=== PATIENT | female | born 1990 | race Caucasian/White ===

== ENCOUNTER 2024-04-15 11:06 | Emergency (ER) | payer BC ==
[2024-04-15] MEDS ORDERED: LIDOCAINE 1% MPF 5 ML VIAL ONE (11:24)
--- NOTE | 2024-04-15 11:53 | EDPHYS ---
Physician Documentation [facility] Name: Nathalie Ruiz Age: 33 yrs Sex: Female : 1990 Arrival Date: 04/15/2024 Time: 11:06 Bed 14 Private MD: ED Physician Parmjit Aly HPI: 04/15 11:24 This 33 yrs old Female presents to ER via Ambulatory with complaints of abscess. sb4 11:24 The patient presents with an abscess of the left axilla. Description: The affected area sb4 is small, localized, swollen, tense, warm. Onset: The symptoms/episode began/occurred 3 day(s) ago. Possible cause(s): razor. Associated signs and symptoms: The patient has no apparent associated signs or symptoms. Modifying factors: the symptoms are alleviated by nothing, the symptoms are aggravated by squeezing the lesion and expressing the contents, touching. The patient has not experienced similar symptoms in the past. The patient has not recently seen a physician. Historical: - Allergies: 11:19 No Known Allergies; hb - Home Meds: 11:19 None [Active]; hb - PMHx: 11:19 None; hb - PSHx: 11:19 None; hb - Immunization history:: Adult Immunizations up to date. - Infectious Disease History:: Denies. - Social history:: Smoking status: Patient denies any tobacco usage or history of. ROS: 11:24 Constitutional: Negative for fever, chills, and weight loss, sb4 11:24 Skin: Positive for abscess, of the left axilla, 11:24 All other systems are negative, Exam: 11:24 Constitutional: This is a well developed, well nourished patient who is awake, alert, sb4 and in no acute distress. Head/Face: Normocephalic, atraumatic. Eyes: Extra-ocular motions intact. Periorbital areas with no swelling, redness, or edema. ENT: Mucous membranes moist. 11:24 Skin: abscess, that is small, of the left axilla, with fluctuance, Vital Signs: 11:18 BP 146 / 101; Pulse 86; Resp 16; Temp 98.1(O); Pulse Ox 100% on R/A; Weight 65.77 kg; hb Height 5 ft. 3 in. ; Pain 8/10; 11:52 BP 142 / 98; Pulse 90; Resp 18; Pulse Ox 100% ; ko1 11:18 Body Mass Index 25.69 (65.77 kg, 160.02 cm) hb 11:18 Pain Scale: Adult hb Procedures: 11:51 I \T\ D: Incision and drainage was performed for an abscess of the left axilla. Prepped sb4 with Betadine, Anesthetized with 2 ml's 1% Lidocaine. Incised with #11 blade. Drained moderate amount purulent fluid. Dressing: non-Adherent dressing, the patient tolerated the procedure well. MDM: 11:14 Patient medically screened. sb4 11:51 Data reviewed: vital signs, nurses notes, and as a result, I will discharge patient. sb4 Counseling: I had a detailed discussion with the patient and/or guardian regarding the historical points, exam findings, and any diagnostic results supporting the discharge/admit diagnosis, the need for outpatient follow up, for definitive care, to return to the emergency department if symptoms worsen or persist or if there are any questions or concerns that arise at home. Administered Medications: 11:49 Drug: Lidocaine Infiltration (1 %) 5 ml 5 ml Infiltration once; to bedside {Note: given ko1 by Dustin Beal.} Volume: 5 ml; Route: Infiltration; Disposition: 12:09 Co-signature as Attending Physician, Parmjit Aly MD I reviewed the patient's care rn provided by the Advanced Practice Provider and agree with the diagnosis and treatment plan. Disposition Summary: 04/15/24 11:52 Discharge Ordered Notes: Location: Home sb4 Problem: new sb4 Symptoms: have improved sb4 Condition: Stable sb4 Diagnosis - Cutaneous abscess of left axilla sb4 Followup: sb4 - With: Emergency Department - When: As needed - Reason: Fever > 102 F, Worsening of condition Discharge Instructions: - Discharge Summary Sheet sb4 - Skin Abscess, [id number] sb4 - Incision and Drainage, Care After sb4 Forms: - Antibiotic Education sb4 - Patient Portal Instructions sb4 - Leadership Thank You Letter sb4 Prescriptions: - Bactrim DS 800-160 mg Oral Tablet - take 1 tablet ORAL route every 12 hours for 10 days; 20 tablet; Refills: 0, sb4 Product Selection Permitted Signatures: Parmjit Aly MD MD rn Baxter, Heather, RN RN hb Oliver, Kathy, RN RN ko1 Rachael Beal, PA-C PA-C sb4
--- NOTE | 2024-04-15 11:53 | ER ---
Nurse's Notes [facility] Name: Nathalie Ruiz Age: 33 yrs Sex: Female : 1990 Arrival Date: 04/15/2024 Time: 11:06 Bed 14 Private MD: Diagnosis: Cutaneous abscess of left axilla Presentation: 04/15 11:18 Chief complaint: Abscess under left arm x 3-4 days. Coronavirus screen: At this time, hb the client does not indicate any symptoms associated with coronavirus-19. Ebola Screen: No symptoms or risks identified at this time. Initial Sepsis Screen: Does the patient meet any 2 criteria? No. Patient's initial sepsis screen is negative. Does the patient have a suspected source of infection? No. Patient's initial sepsis screen is negative. Risk Assessment: Do you want to hurt yourself or someone else? Patient reports no desire to harm self or others. Onset of symptoms was April 12, 2024. 11:18 Method Of Arrival: Ambulatory hb 11:18 Acuity: AUDI 4 hb Triage Assessment: 12:01 General: Behavior is calm, cooperative, appropriate for age. ko1 Historical: - Allergies: 11:19 No Known Allergies; hb - Home Meds: 11:19 None [Active]; hb - PMHx: 11:19 None; hb - PSHx: 11:19 None; hb - Immunization history:: Adult Immunizations up to date. - Infectious Disease History:: Denies. - Social history:: Smoking status: Patient denies any tobacco usage or history of. Screenin:27 [facility] ED Fall Risk Assessment (Adult) History of falling in the last 3 months, ko1 including since admission No falls in past 3 months (0 pts) Confusion or Disorientation No (0 pts) Intoxicated or Sedated No (0 pts) Impaired Gait No (0 pts) Mobility Assist Device Used No (0 pt) Altered Elimination No (0 pt) Score/Fall Risk Level 0 - 2 = Low Risk Oriented to surroundings, Maintained a safe environment, Educated pt \T\ family on fall prevention, incl call for assistance when getting out of bed, Assessed \T\ reinforced patient's understanding of fall precautions, Provided non-skid footwear, Hourly rounding (assess needs \T\ fall precautionary measures) done. Abuse screen: Denies threats or abuse. Denies injuries from another. Nutritional screening: No deficits noted. Tuberculosis screening: No symptoms or risk factors identified. Assessment: 11:27 General: Appears in no apparent distress. Pain: Complains of pain in left axilla. ko1 Neuro: No deficits noted. Cardiovascular: No deficits noted. Respiratory: No deficits noted. GI: No deficits noted. : No deficits noted. EENT: No deficits noted. Derm: Abscess located on left axilla. Musculoskeletal: No deficits noted. Vital Signs: 11:18 BP 146 / 101; Pulse 86; Resp 16; Temp 98.1(O); Pulse Ox 100% on R/A; Weight 65.77 kg; hb Height 5 ft. 3 in. ; Pain 8/10; 11:52 BP 142 / 98; Pulse 90; Resp 18; Pulse Ox 100% ; ko1 11:18 Body Mass Index 25.69 (65.77 kg, 160.02 cm) hb 11:18 Pain Scale: Adult hb ED Course: 11:11 Patient arrived in ED. mg5 11:14 Rachael Beal PA-C is PHCP. sb4 11:14 Parmjit Aly MD is Attending Physician. sb4 11:17 Rhoda Dowell, CHIQUITA is Primary Nurse. ko1 11:19 Triage completed. hb 11:19 Arm band placed on. hb 11:27 Patient has correct armband on for positive identification. Bed in low position. Call ko1 light in reach. Side rails up X2. Provided Education on: procedure. Pulse ox on. NIBP on. Door closed. Noise minimized. Lights dimmed. Warm blanket given. Pillow given. 11:27 Patient did not have IV access during this emergency room visit. ko1 11:55 Assist provider with I \T\ D: of an abscess on left axilla Set up I\T\D tray. Performed by ko 1 Rachael Beal PA-C Dressing with Neosporin and 4X4s, tape Patient tolerated well. Administered Medications: 11:49 Drug: Lidocaine Infiltration (1 %) 5 ml 5 ml Infiltration once; to bedside {Note: given ko1 by Dustin Beal.} Volume: 5 ml; Route: Infiltration; Medication: 11:27 VIS not applicable for this client. ko1 Outcome: 11:52 Discharge ordered by . sb4 12:01 Discharged to home ambulatory, ko1 12:01 Condition: stable 12:01 Discharge instructions given to patient, Instructed on discharge instructions, follow up and referral plans. medication usage, wound care, Demonstrated understanding of instructions, follow-up care, medications, wound care, Prescriptions given X 1, 12:01 Patient left the ED. ko1 Signatures: Jennifer Miller RN CHIQUITA Rhoda Dowell RN RN ko1 Rachael Beal, PA-C PAEileenC sb4 Patsy Mon 5
[2024-04-15 12:07] VITALS: TEMP 98.1; O2SAT 100
[2024-04-15 12:08] VITALS: BP 142/98
== END 2024-04-15 12:01 | disposition home or self-care (01) ==
LOC: ER 11:06
PROC: 0H9CXZZ Drainage of Left Upper Arm Skin, External Approach (ICD-10-PCS; principal; 2024-04-15)
DX: L02.412 Cutaneous abscess of left axilla (principal)
CPT/HCPCS: 99284; 10060; J2001

== ENCOUNTER 2024-05-13 11:43 | Emergency (ER) | payer BC, MEDICARE ==
[2024-05-13] MEDS ORDERED: LORazepam 2 MG/ML VIAL ONE (12:53)
[2024-05-13] MEDS ORDERED: NA CHLORIDE 0.9% 1,000 ML ONE (12:53)
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
--- NOTE | 2024-05-13 12:56 | RAD REPORT ---
Procedure: Chest Single View HISTORY: Chest pain COMPARISON: none FINDINGS: The lungs appear clear of acute infiltrate. No significant pleural effusion noted. The heart is normal size. IMPRESSION: No acute abnormality is displayed.
[2024-05-13 13:23] LABS: Absolute Lymphocytes (CBC) 1.1 K/uL (0.7-4.9); Absolute Monocytes 0.7 K/uL (0.1-1.3); Absolute Neutrophil 10.2 K/uL (1.8-8.0); Basophils % 0.2 % (0-1.3); Eosinophils % 0.1 % (0-4.4); Hematocrit 36.7 % (36.0-45.0); Lymphocytes % 8.8 % (15.3-44.8); MCH 30.8 pg (27.0-35.0); MCHC 32.8 g/dL (32.0-36.0); MCV 93.7 fL (80-100); Monocytes % 5.8 % (3.3-12.3); Neutrophils % 85.1 % (41.7-73.7); Platelets 316 thou/uL (152-406); RBC Red Blood Cell Count 3.92 M/uL (3.86-4.86); Red Cell Distribution Width 13.5 % (12.1-15.2)
[2024-05-13 13:43] LABS: Albumin 3.3 g/dL (3.4-5.0); Anion Gap 7.8 mEq/L (5.0-15.0); Bilirubin Total 0.6 mg/dL (0.2-1.0); Globulin 3.2 g/dL (2.3-3.5); Potassium 3.8 mEq/L (3.5-5.1); Protein, Total 6.5 g/dL (6.4-8.2)
[2024-05-13 13:51] LABS: Blood Morphology Comment NOT SEEN (NOT SEEN); Platelet Estimate ADEQ; Toxic Granulation 1+; White Blood Cell Scan OK (OK)
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
[2024-05-13 18:47] VITALS: O2SAT 100
[2024-05-13 18:49] VITALS: TEMP 97.7
[2024-05-13 18:54] VITALS: BP 107/72
== END 2024-05-13 16:45 | disposition home or self-care (01) ==
LOC: ER 11:43
DX: G44.319 Acute post-traumatic headache, not intractable (principal); Y04.8XXA Assault by other bodily force, initial encounter; Z21 Asymptomatic human immunodeficiency virus [HIV] infection status
CPT/HCPCS: 36415; 70450; 71045; 80053; 82550; 84703; 85025; 93005; J7030

== ENCOUNTER 2024-08-05 18:18 | Emergency (ER) | payer MEDICARE ==
[2024-08-05] MEDS ORDERED: LIDOCAINE 2% W/EPI 1:200,000 MPF 20 ML VIAL IM ONE (19:11)
[2024-08-05] MEDS ORDERED: IBUPROFEN 200 MG TAB PO ONE (19:11)
[2024-08-05] MEDS ORDERED: ACETAMINOPHEN 325 MG TABLET ONE (19:12)
[2024-08-05] MEDS ORDERED: IBUPROFEN 400 MG TAB ONE (19:12)
--- NOTE | 2024-08-05 20:06 | ER ---
Nurse's Notes [facility] Name: Nathalie Ruiz Age: 33 yrs Sex: Female : 1990 Arrival Date: 08/05/2024 Time: 18:18 Bed 12 Private MD: Diagnosis: Cutaneous abscess of abdominal wall Presentation: 08/05 18:51 Chief complaint: Patient states: abscess to abdomen onset 3 days ago. Coronavirus cm10 screen: Client denies travel out of the [place] in the last 14 days. Ebola Screen: Patient denies travel to an Ebola-affected area in the 21 days before illness onset. No symptoms or risks identified at this time. Initial Sepsis Screen: Does the patient meet any 2 criteria? HR > 90 bpm. Does the patient have a suspected source of infection? No. Patient's initial sepsis screen is negative. Risk Assessment: Do you want to hurt yourself or someone else? Patient reports no desire to harm self or others. Onset of symptoms was August 05, 2024. 18:51 Method Of Arrival: Ambulatory cm10 18:51 Acuity: AUDI 4 cm10 Historical: - Allergies: 18:51 No Known Allergies; cm10 - Home Meds: 18:52 Genvoya oral daily [Active]; cm10 - PMHx: 18:51 HERPES; HIV positive; cm10 - Immunization history:: Adult Immunizations up to date. - Infectious Disease History:: Denies. - Social history:: Smoking status: Reported history of juuling and/or vaping. Screenin:00 [facility] ED Fall Risk Assessment (Adult) History of falling in the last 3 months, br2 including since admission No falls in past 3 months (0 pts) Confusion or Disorientation No (0 pts) Intoxicated or Sedated No (0 pts) Impaired Gait No (0 pts) Mobility Assist Device Used No (0 pt) Altered Elimination No (0 pt) Score/Fall Risk Level 0 - 2 = Low Risk Oriented to surroundings. Abuse screen: Denies threats or abuse. Denies injuries from another. Nutritional screening: No deficits noted. Nutritional screening: No deficits noted. Tuberculosis screening: No symptoms or risk factors identified. Assessment: 19:00 Reassessment: Patient and/or family updated on plan of care and expected duration. Pain br2 level reassessed. Patient is alert, oriented x 3, equal unlabored respirations, skin warm/dry/pink. General: Appears in no apparent distress. comfortable, Behavior is calm, cooperative. Pain: Complains of pain in right lower quadrant Pain does not radiate. Pain currently is 10 out of 10 on a pain scale. Derm: Skin ABSCESS Skin is red, Abscess located on right lower quadrant. Vital Signs: 18:51 BP 129 / 88; Pulse 124; Resp 15; Temp 97.2(TE); Pulse Ox 100% on R/A; Weight 58.97 kg; cm10 Height 5 ft. 2 in. ; Pain 8/10; 20:21 BP 117 / 84; Pulse 110; Resp 20 S; Pulse Ox 100% on R/A; br2 18:51 Body Mass Index 23.78 (58.97 kg, 157.48 cm) cm10 18:51 Pain Scale: Adult cm10 ED Course: 18:24 Patient arrived in ED. ra3 18:32 Curtis Gresham PA is PHCP. cp 18:32 Curtis Maher MD is Attending Physician. cp 18:51 Triage completed. cm10 18:52 Arm band placed on right wrist. Patient placed in an exam room, on a stretcher. cm10 18:53 Linda Dillard, CHIQUITA is Primary Nurse. br2 19:00 Patient has correct armband on for positive identification. Bed in low position. Call br2 light in reach. Side rails up X 1. Provided Education on: PLAN OF CARE. 19:01 Enrique Escamilla MD is Attending Physician. cp 20:29 No provider procedures requiring assistance completed. Patient did not have IV access br2 during this emergency room visit. Administered Medications: 19:14 Drug: Lidocaine-Epinephrine Infiltration -2 % (1:100,000) 10 ml Infiltration once; to br2 bedside Route: Infiltration; 19:18 Drug: Ibuprofen PO 600 mg PO once Route: PO; br2 20:00 Follow up: Response: No adverse reaction br2 19:18 Drug: Acetaminophen PO 650 mg PO once Route: PO; br2 20:00 Follow up: Response: No adverse reaction br2 20:22 Drug: Trimethoprim-Sulfamethoxazole PO (160 mg-800 mg (DS) 2 tablet PO once Route: PO; br2 20:30 Follow up: Response: Medication administered at discharge. br2 Medication: 20:29 VIS not applicable for this client. br2 Outcome: 20:05 Discharge ordered by . flor 20:29 Discharged to home ambulatory, br2 20:29 Condition: good 20:29 Discharge instructions given to patient, Instructed on discharge instructions, Demonstrated understanding of instructions, follow-up care, medications, Prescriptions given X 2, 20:30 Patient left the ED. br2 Signatures: Curtis Gresham PA PA cp Martinez, Clarissa, RN RN cm10 Lashon Archibald ra3 Linda Dillard RN RN br2
--- NOTE | 2024-08-05 20:06 | EDPHYS ---
Physician Documentation [facility] Name: Nathalie Ruiz Age: 33 yrs Sex: Female : 1990 Arrival Date: 08/05/2024 Time: 18:18 Bed 12 Private MD: ED Physician Enrique Escamilla HPI: 08/05 19:10 This 33 yrs old Female presents to ER via Ambulatory with complaints of Insect Bite. cp 19:10 The patient presents with an abscess of the right lower quadrant of abdomen. cp Description: erythematous, swollen. Onset: The symptoms/episode began/occurred 3 day(s) ago. Possible cause(s): unknown. 19:10 Associated signs and symptoms: Pertinent positives: erythema, swelling, Pertinent cp negatives: discharge, drainage, fever. Historical: - Allergies: 18:51 No Known Allergies; cm10 - Home Meds: 18:52 Genvoya oral daily [Active]; cm10 - PMHx: 18:51 HERPES; HIV positive; cm10 - Immunization history:: Adult Immunizations up to date. - Infectious Disease History:: Denies. - Social history:: Smoking status: Reported history of juuling and/or vaping. ROS: 19:15 Constitutional: Negative for body aches, chills, fever, poor PO intake, cp 19:15 Eyes: Negative for injury, pain, redness, and discharge, cp 19:15 Respiratory: Negative for cough, shortness of breath, 19:15 Abdomen/GI: Positive for of the right lower quadrant, abscess, Negative for vomiting, diarrhea, constipation, 19:15 Neuro: Negative for altered mental status, 19:15 All other systems are negative, Exam: 19:20 Constitutional: The patient appears in no acute distress, alert, awake, non-toxic, well cp developed, well nourished, 19:20 Head/Face: Normocephalic, atraumatic. cp 19:20 Cardiovascular: Rate: tachycardic, 19:20 Respiratory: the patient does not display signs of respiratory distress, Respirations: normal, no use of accessory muscles, no retractions, labored breathing, is not present, Breath sounds: are clear throughout, 19:20 Abdomen/GI: Inspection: small abscess noted right lower abdomen in area of belt line with mild surrounding erythema and swelling, Bowel sounds: active, all quadrants, Palpation: soft, in all quadrants, mild abdominal tenderness, in the right lower quadrant, Vital Signs: 18:51 BP 129 / 88; Pulse 124; Resp 15; Temp 97.2(TE); Pulse Ox 100% on R/A; Weight 58.97 kg; cm10 Height 5 ft. 2 in. ; Pain 8/10; 20:21 BP 117 / 84; Pulse 110; Resp 20 S; Pulse Ox 100% on R/A; br2 18:51 Body Mass Index 23.78 (58.97 kg, 157.48 cm) cm10 18:51 Pain Scale: Adult cm10 Procedures: 20:05 I \T\ D: Incision and drainage was performed for an abscess of the right lower abdomen cp Prepped with Betadine, Anesthetized with ml's 2% Lidocaine with epinephrine. 4 ml's 2% Lidocaine with epinephrine. Incised with #11 blade. Drained small amount purulent fluid. Packed with iodoform gauze, Dressing: sterile 4x4 gauze, the patient tolerated the procedure well. MDM: 18:52 Medical Screening Exam initiated jean marie 19:15 Differential diagnosis: abscess, cellulitis, insect bite, sepsis. 20:05 Data reviewed: vital signs, nurses notes, and as a result, I will discharge patient. 20:05 I considered the following discharge prescriptions or medication management in the emergency department Medications were administered in the Emergency Department. See MAR. 20:05 Care significantly affected by the following chronic conditions: HIV. Counseling: I had a detailed discussion with the patient and/or guardian regarding the historical points, exam findings, and any diagnostic results supporting the discharge/admit diagnosis, to return to the emergency department if symptoms worsen or persist or if there are any questions or concerns that arise at home. Response to treatment: the patient's symptoms have mildly improved after treatment, and as a result, I will discharge patient. 08/05 19:04 Order name: I\T\D Setup; Complete Time: 19:14 cp 08/05 20:04 Order name: Wound dressing; Complete Time: 20:22 08/05 20:06 Order name: Vital Signs; Complete Time: 20:22 Administered Medications: 19:14 Drug: Lidocaine-Epinephrine Infiltration -2 % (1:100,000) 10 ml Infiltration once; to br2 bedside Route: Infiltration; 19:18 Drug: Ibuprofen PO 600 mg PO once Route: PO; br2 20:00 Follow up: Response: No adverse reaction br2 19:18 Drug: Acetaminophen PO 650 mg PO once Route: PO; br2 20:00 Follow up: Response: No adverse reaction br2 20:22 Drug: Trimethoprim-Sulfamethoxazole PO (160 mg-800 mg (DS) 2 tablet PO once Route: PO; br2 20:30 Follow up: Response: Medication administered at discharge. br2 Disposition: 08/06 01:51 Co-signature as Attending Physician, Enrique Escamilla MD I reviewed the patient's care rt provided by the Advanced Practice Provider and agree with the diagnosis and treatment plan. Disposition Summary: 08/05/24 20:05 Discharge Ordered Notes: Location: Home cp Problem: new cp Symptoms: have improved cp Condition: Stable cp Diagnosis - Cutaneous abscess of abdominal wall cp Followup: cp - With: Emergency Department - When: 2 - 3 days - Reason: Worsening of condition Discharge Instructions: - Discharge Summary Sheet cp - Skin Abscess cp - Incision and Drainage cp Forms: - Medication Reconciliation Form cp - Antibiotic Education cp - Prescription Opioid Use cp - Patient Portal Instructions cp - Leadership Thank You Letter cp Prescriptions: - Ibuprofen 800 mg Oral Tablet - take 1 tablet ORAL route every 8 hours As needed take with food; 30 tablet; cp Refills: 0, Product Selection Permitted - Bactrim DS 800-160 mg Oral Tablet - take 1 tablet ORAL route every 12 hours for 10 days; 20 tablet; Refills: 0, cp Product Selection Permitted Signatures: Curtis Maher MD MD cha Page, Corey, PA PA cp Enrique Escamilla MD MD rt Esther Terrazas RN RN cm10 Linda Dillard RN RN br2
[2024-08-05] MEDS ORDERED: SMZ./TMP. 800/160 MG TABLET ONE (20:15)
[2024-08-05 20:41] VITALS: TEMP 97.2; O2SAT 100
[2024-08-05 20:43] VITALS: BP 117/84
== END 2024-08-05 20:30 | disposition home or self-care (01) ==
LOC: ER 18:18
PROC: 0H97XZZ Drainage of Abdomen Skin, External Approach (ICD-10-PCS; principal; 2024-08-05)
DX: L02.211 Cutaneous abscess of abdominal wall (principal)
CPT/HCPCS: 99283

== ENCOUNTER 2024-08-30 08:22 | Day surgery (SDC) | payer MEDICARE ==
[2024-08-30] MEDS ORDERED: LIDOCAINE 2% MPF 5 ML VIAL ONE (08:49)
[2024-08-30] MEDS ORDERED: ONDANSETRON 4 MG/2 ML VIAL ONE (08:49)
[2024-08-30] MEDS ORDERED: MIDAZOLAM HCL 2 MG/2 ML INJ ONE (08:50)
[2024-08-30] MEDS ORDERED: propofoL 200 MG/20 ML VIAL IV ONE (08:50)
[2024-08-30] MEDS ORDERED: ROCURONIUM 50 MG/5 ML VIAL IV ONE (08:50)
[2024-08-30] MEDS ORDERED: FENTANYL CITR 100 MCG/2 ML ONE ×2 (08:50→10:00)
[2024-08-30] MEDS ORDERED: BUPIVACAINE 0.25% PF 30 ML VIAL ONE (08:56)
[2024-08-30 09:04] LABS: Absolute Eosinophils 0.1 K/uL (0-0.5); Absolute Lymphocytes (CBC) 1.6 K/uL (0.7-4.9); Absolute Monocytes 0.5 K/uL (0.1-1.3); Absolute Neutrophil 3.5 K/uL (1.8-8.0); Basophils % 0.8 % (0-1.3); Eosinophils % 1.4 % (0-4.4); Hematocrit 38.4 % (36.0-45.0); Hemoglobin 12.9 g/dL (12.0-15.0); Lymphocytes % 28.3 % (15.3-44.8); MCH 30.9 pg (27.0-35.0); MCHC 33.6 g/dL (32.0-36.0); Monocytes % 8.7 % (3.3-12.3); Neutrophils % 60.8 % (41.7-73.7); Nucleated Red Blood Cells % 0.1 % (0-0); Platelets 324 thou/uL (152-406); RBC Red Blood Cell Count 4.17 M/uL (3.86-4.86); Red Cell Distribution Width 13.9 % (12.1-15.2)
[2024-08-30] MEDS ORDERED: LIDOCAINE HCL/EPINEPHRINE 20 ML MDV ONE (09:09)
[2024-08-30 09:10] LABS: Sqamous Epithelial <5 /HPF (None Seen); Urine Bacteria <20 /HPF (<20); Urine Bilirubin NEGATIVE (Negative); Urine Blood Trace (Negative); Urine Clarity Extremely Turbid (Clear); Urine Color Light-Yellow (Yellow); Urine Culture Reflex Order REFLEXED; Urine Glucose NEGATIVE (Negative); Urine Ketones NEGATIVE (Negative); Urine Microscopic Reflex YN ORDER UMIC; Urine Nitrite NEGATIVE (Negative); Urine Protein NEGATIVE (Negative); Urine Urobilinogen Normal (Normal); Urine WBC >50 /HPF (<5); Urine WBC Clump Rare /HPF (None Seen); Urine Yeast with Hyphae Trace /HPF (None Seen)
[2024-08-30] MEDS ORDERED: SCOPOLAMINE HYDROBROMIDE PATCH TD ONE (09:10)
[2024-08-30] MEDS: Ringers Lactate 1,000 ML IV ONE (09:20)
[2024-08-30] MEDS ORDERED: dexAMETHasone 10 MG/ML VIAL ONE (09:39)
[2024-08-30] MEDS: CEFAZOLIN SODIUM 2 GM/VIAL ONE (09:45)
[2024-08-30 09:58] LABS: Urine Specific Gravity/Preg >1.030 (1.005-1.030)
[2024-08-30] MEDS ORDERED: IBUPROFEN 200 MG TAB PO PRN (11:02)
[2024-08-30] MEDS ORDERED: ACETAMINOPHEN 500 MG TAB PO PRN (11:03)
[2024-08-30] MEDS ORDERED: KETOROLAC 30 MG/ML INJ ONE (11:03)
--- NOTE | 2024-08-30 11:08 | P.BOP ---
Preoperative diagnosis: CIN2,3, +ECC CIN2, menorrhagia, dysmenorrhea, HPV 16, HIV+Smoker Postoperative diagnosis: same Primary procedure: Cervical colposcopy, COld Knife conization, ECC, hysteroscopy d/c Carton Forming Machine Tender: Alejandra Kramer Estimated blood loss: 10 Specimen: EMC, ECC, cone Findings: AWE at 11, mild, hystsc with normal endometrium, satisfactory cone Anesthesia: General Complications: None Transferred to: Recovery Room Condition: Good
[2024-08-30 13:02] VITALS: BP 122/76; TEMP 97.4; O2SAT 97
--- NOTE | 2024-08-30 22:35 | OP ---
Date of Procedure: 08/30/2024 Surgeon: Sissy Diaz MD Assembly Line Driver: Alejandra Hodges. 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 Procedures Performed: 1. Cervical colposcopy, cold knife conization and endocervical curettage. 2. Hysteroscopy and dilation and curettage. Estimated Blood Loss: 10. Anesthesia: General with LMA. Complications: No complications. Drains: No drains. Specimens: Endometrial curettage, endocervical curettage, and cervical colon. Findings: On colposcopy, aceto-white epithelium with mild dysplastic changes were noted at 11 o'cloc k. Rest of the cervix was unremarkable under the colposcope. On hysteroscopy, endometrium was mostl y unremarkable. No new intracavitary lesions were noted and the cavity was entirely visualized and t he endometrial curettage was performed. There was slight amount of thickened tissue on the internal aspect, lower aspect of the uterine canal around 7 o'clock position and attention was paid to this wh ile obtaining the curettings. The colon was satisfactory in size and in margins. Condition: The patient's condition is stable. Indications: The patient is a 34-year-old female who was referred to us by Luba Prakash who is a nurse practitioner in [facility] for an abnormal Pap smear. She had a low-grade FRANCISCO Pap with HPV 16 posi tive. On consultation and colposcopy in the office, there were dysplastic changes both at 7 and 11 o 'clock positions, which were both biopsied and ECC was done. The results at 7 o'clock were consisten t with CYNTHIA 3 and CYNTHIA 2 at 11 o'clock and the endocervical canal. Given this pathology and given the patient's longstanding history of HPV, which she believes has been diagnosed when she was diagnosed w ith HIV as well in 2017, she was living in [place]. She was referred for colposcopy or a biopsy, but she has never followed through other than getting her Pap smear screening along with her anti-retrov iral medication with which she is compliant. She is on 2 different drugs and her viral load is undet ectable. She has moved to [place] in less than a year ago and lives with possibly closer to her mother , maybe lives with a partner. The patient also has history of heavy periods. 2 out of those days ar e significantly heavy with significant cramping where she is unable to do most of her daily activitie s. So, initially the patient wanted to be completely get rid of disease. Also, proceed with a hyste rectomy. We discussed all the different options and the recommendation is to start with the cold kni fe conization in order for us to rule out any deeper disease with invasion. The patient was explaine d that a radical hysterectomy opposed to a simple hysterectomy would be recommended under those circu mstances. For evaluation of the bleeding, I recommended her to get an endometrial sample in the offi ce, which she was not able to get and therefore hysteroscopy and D and C were suggested. The patient has family history of mother with uterine cancer, possibly ovarian cancer; however, she also had rep ortedly throat cancer. The patient is unsure of the accurate diagnosis. She could also potentially have had cervical cancer and we discussed this. Father had some other cancer. Plan was given her mo ther's history of uterine cancer in her earlier age maybe in her 30s, endometrial sampling was impera tive and discussed and consented. Description Of Procedure: After re-consenting in the preoperative area today, she was taken to the O R. The patient has history of alcoholism, but reported that she has not had any alcohol in the last 29 days since the New Year's. She is a smoker, at least a pack a day and is now down to 4-10 cigaret alfredo a day and she denied using any drugs. Today after taking her back to the OR, placed in a supine fashion on the operating table, general ane sthesia was given. She was placed in a dorsal lithotomy position and the cervical colposcopy started . Cervical colposcopy: Colposcope was adjusted after the bilateral speculum were placed and the cervix was well visualized. 5% acetic acid was applied and then acetowhite epithelium at 11 o'clock. As d iscussed above, no other dysplastic lesions were noted. The entire endocervical margin was not well visualized. Then, Lugol's iodine was applied to pratibha out the ectocervical outer margin of the transf ormation zone and once this was well visualized, plan was to proceed with the hysteroscopy. Hysteroscopy was performed with the diagnostic sheath. The lens was advanced directly through the ce rvical canal into the uterine cavity without any problems. Then, endometrium was mostly unremarkable at 7 o'clock position. There was some thickening and irregularity, but most of the endometrium was completely unremarkable. No intracavitary lesions. Both tubal ostia were visualized. Scope was rem aidan. Endometrial curettage was performed with 0 curette and handed off for permanent pathology dire cting the curettings to the 7 o'clock position right above the internal os. Once all the hysteroscop ic instruments were removed, we then proceed with a cold knife conization. Cold knife conization and ECC: 1% lidocaine with epinephrine 20 cc was injected in a circumferential fashion on the cervix. Then, 2 stay sutures were placed at 3 and 6 o'clock position at the cervicov aginal junction and held on hemostats for retraction. The ectocervical margin of the cervix was pratibha ed out with a marking pen. Then, using a cold knife cone handle, an 11 blade was loaded on it and a cone was performed. The length of the cervical canal was measured under direct visualization with a hysteroscope. It was 4 cm. So, the depth of the colon was kept cognizant in the direction and also the length was maintained so I could get the entire margin. Once the specimen was incised and it was cut and detachment was made using Sharon scissors. There was at least a 2.5 cm cone that was obtained and at 12 o'clock position, the ectocervical margin was marked with a long stitch and in the inner margin, it was marked with a short stitch at 12 o'clock. This was handed off for permanent pathology. Endocervical curettage was performed as well as a Pap brush that was taken to collect the sample and handed out also. A modified Sturmdorf stitch was placed with 0 Vicryl suture in a continuous running locked fashion ci rcumferentially and estrogen for hemostasis was applied appropriately in the canal. All the instrume nts were removed. The stay sutures were cut. EBL was 10 mL. The patient was recovered from anesthe samanta. Instrument, needle, and sponge counts were correct and taken to PACU in stable condition. She will follow up in 3-4 weeks and clear instructions have been given in order for her to avoid any vagi nal insertion of tampons or sexual intercourse or any other things. Incidentally, after the patient was in the operating room, there was a small bag of possibly a powder -like substance could be consistent with drugs. However, we did not discover this on the patient. T his was noted after the patient was in the operating room and under anesthesia in the preop holding r oom where she was, so due to the questionable confirmation that this was the patient's herself, we forte nded the packet to security and I will international student counselor the patient on use of drugs and she can follow up with her primary care provider for this. No narcotic medication will be given home. Only ibuprofen and Tylenol and she will not be prescribed any narcotic even through the office. BECKY/JONNY Voice ID: [id number] Report ID: [id number]
[2024-08-31] MEDS ORDERED: [UNRECOGNIZED DRUG - OTHER] PO SCH (09:00)
== END 2024-08-30 12:30 | disposition home or self-care (01) ==
LOC: OR 08:22
PROVIDERS: ATTEND Obstetrics & Gynecology
PROC: 0UJH8ZZ Inspection of Vagina and Cul-de-sac, Via Natural or Artificial Opening Endoscopic (ICD-10-PCS; 2024-08-30)
PROC: 0UDB8ZZ Extraction of Endometrium, Via Natural or Artificial Opening Endoscopic (ICD-10-PCS; principal; 2024-08-30 08:30)
DX: D06.9 Carcinoma in situ of cervix, unspecified (principal); N92.0 Excessive and frequent menstruation with regular cycle; N94.6 Dysmenorrhea, unspecified; F17.210 Nicotine dependence, cigarettes, uncomplicated; R87.810 Cervical high risk human papillomavirus (HPV) DNA test positive; Z21 Asymptomatic human immunodeficiency virus [HIV] infection status
CPT/HCPCS: 36415; 81001; 81025; 85025; 86850; 86900; 86901; 87077; 87086; 87088; 87186; 88305; 88307; J1100; J2003; J2250; J2405; J2704; J3010; J7120